=== PATIENT | male | born 1970 | race Caucasian/White ===

== ENCOUNTER → 2020-02-04 10:43 | Outpatient (CLI) | payer OTHER, SELFPAY ==
[2020-01-29 12:27] LABS: Hematocrit 49.9 % (40-54); Hemoglobin 16.5 g/dL (13.0-16.5); Mean Corp Hgb Conc 33.1 g/dL (32-36); Mean Corpuscular Hgb 29.6 pg (27.0-32.0); Mean Corpuscular Volume 89.6 fL (80-94); Mean Platelet Vol. 10.1 fl (6.2-12.0); Platelet Count 275 K/mm3 (150-450); RBC Distribution Width CV 14.5 % (11.6-14.6); RBC Distribution Width SD 45.8 fl (35.1-43.9); Red Blood Count 5.57 M/mm3 (4.6-6.2); White Blood Count 8.5 K/mm3 (4.4-11.0)
--- NOTE | 2020-01-29 12:30 | EKG12_ITS ---
Test Reason : PREOP Blood Pressure : / mmHG Vent. Rate : 069 BPM Atrial Rate : 069 BPM P-R Int : 142 ms QRS Dur : 112 ms QT Int : 414 ms P-R-T Axes : 050 018 028 degrees QTc Int : 443 ms Normal sinus rhythm Normal ECG Confirmed by SAKINA FINCH ([id number]), deputy editor in chief MARCELLUS SIFUENTES ([id number] on 02/03/2020 2:19:53 PM Referred By: George Guidry Confirmed By:SAKINA FINCH
[2020-01-29 12:48] LABS: Anion Gap 6 (5-15); BUN 13 mg/dL (7-18); BUN/Creat Ratio 18.1 RATIO (10-20); Calcium,Total 8.9 mg/dL (8.5-10.1); Chloride 105 mmol/L (98-107); Creatinine, Serum 0.72 mg/dL (0.70-1.30); EST Glomerular Filtration Rate 124 mL/min (>60); Est Glom Filt Rate - Afr Amer 150 mL/min (>60); Glucose 89 mg/dL (74-106); Potassium 4.1 mmol/L (3.5-5.1); Sodium Level 138 mmol/L (136-145)
== END ==
PROVIDERS: Referring Provider Physician Assistant; Visit Provider Physician Assistant
DX: Z01.810 Encounter for preprocedural cardiovascular examination (principal); Z11.59 Encounter for screening for other viral diseases
CPT/HCPCS: 36415; 80048; 85027; 87635; 93005; G2023; U0003

== ENCOUNTER 2020-02-16 11:40 | Day surgery (SDC) | payer OTHER, SELFPAY ==
[2020-02-16] VITALS (8 sets, daily range): BP systolic 143–171; BP diastolic 84–108; PULSE 69–79; RESP 16; TEMP 36–37.5; O2SAT 93–98; BMI 52.1
[2020-02-16] MEDS: Lactated Ringers 1,000 ML 100 ML IV (12:37)
[2020-02-16] MEDS: Epinephrine (1 mg/ml) 1 MG/ML VIAL (13:51)
[2020-02-16] MEDS: Bupiv/Epi 0.5% Mpf 30 ML Vial (13:51)
--- NOTE | 2020-02-16 15:01 | OP.PCM_ITS ---
Report of Operation Date of Procedure: 02/16/20 Pre-Operative Diagnosis: SAIS, AC arthrosis, biceps tendinopathy and RCT left shoulder Post-Operative Diagnosis: same Surgery/Procedure Performed:: ASD, Azalea procedure, biceps tenotomy and RCR assistant director of financial aid: George Guidry Type of Anesthesia:: General/Regional Anesthesiologist: Bam Zhao - Admit VTE Documentation VTE Present on Admission: No VTE Mechan Device Prophylaxis: SCD's VTE Pharm Prophylaxis ordered?: No Reason prophylaxis not ordered:: Treatment Not Indicated
== END 2020-02-16 17:15 | disposition home or self-care (01) ==
LOC: SDC 11:44 → AC 11:49
PROVIDERS: Anesthesiology; Referring Provider Orthopaedic Surgery; Visit Provider Orthopaedic Surgery
PROC: (CPT 29827; principal; 2020-02-16 13:00)
DX: M75.42 Impingement syndrome of left shoulder (principal); M75.102 Unspecified rotator cuff tear or rupture of left shoulder, not specified as traumatic; M19.012 Primary osteoarthritis, left shoulder; Z11.59 Encounter for screening for other viral diseases; Z91.81 History of falling; Z85.6 Personal history of leukemia; F17.210 Nicotine dependence, cigarettes, uncomplicated; E78.00 Pure hypercholesterolemia, unspecified; Z79.899 Other long term (current) drug therapy; G25.81 Restless legs syndrome
CPT/HCPCS: 01630; 29824; 29826; 29827; 29828; 64415; 87635; G2023; J7120; J2405; U0003

== ENCOUNTER 2020-07-19 05:49 | Day surgery (SDC) | payer OTHER, SELFPAY ==
[2020-02-16 12:07] VITALS: BMI 52.1
[2020-07-15 13:13] LABS: Absolute Lymphocyte Count 1.97 X10^3/uL (0.83-4.51); Absolute Neutrophil Count 5.9 X10^3/uL (2.0-7.7); Basophil# 0.05 X10^3/uL; Basophil% 0.6 % (0-1); Eosinophil# 0.12 X10^3/uL; Eosinophils% 1.4 % (0-5); Lymphocyte # 1.97 X10^3/ul (4.0); Lymphocyte % 22.4 % (19-41); Mean Corp Hgb Conc 33.3 g/dL (32-36); Mean Corpuscular Hgb 29.1 pg (27.0-32.0); Mean Corpuscular Volume 87.3 fL (80-94); Mean Platelet Vol. 10.2 fl (6.2-12.0); Monocyte# 0.76 X10^3/uL; Monocyte% 8.7 % (0-10); NRBC Flagged by Analyzer 0 % (0-5); Neutrophil # 5.85 X10^3/uL (2.7-7.7); Neutrophil % 66.6 % (47-70); Platelet Count 282 K/mm3 (150-450); RBC Distribution Width CV 13.4 % (11.6-14.6); RBC Distribution Width SD 42.3 fl (35.1-43.9); Red Blood Count 5.84 M/mm3 (4.6-6.2); White Blood Count 8.8 K/mm3 (4.4-11.0)
[2020-07-15 13:41] LABS: Anion Gap 5 (5-15); BUN 15 mg/dL (7-18); BUN/Creat Ratio 17.3 RATIO (10-20); Calcium,Total 8.8 mg/dL (8.5-10.1); Chloride 106 mmol/L (98-107); Creatinine, Serum 0.86 mg/dL (0.70-1.30); EST Glomerular Filtration Rate 100 mL/min (>60); Est Glom Filt Rate - Afr Amer 121 mL/min (>60); Glucose 97 mg/dL (74-106); Potassium 4.2 mmol/L (3.5-5.1); Sodium Level 137 mmol/L (136-145)
[2020-07-19] VITALS (8 sets, daily range): BP systolic 117–169; BP diastolic 48–91; PULSE 66–85; RESP 16–18; TEMP 36.1–36.9; O2SAT 94–97; BMI 53.4
[2020-07-19] MEDS: Lactated Ringers 1,000 ML 100 ML IV (06:33)
[2020-07-19] MEDS: Bupiv/Epi 0.5% Mpf 30 ML Vial (08:26)
[2020-07-19] MEDS: Epinephrine (1 mg/ml) 1 MG/ML VIAL (08:26)
--- NOTE | 2020-07-19 09:29 | PCM.OPRPT ---
Report of Operation Date of Procedure: 07/19/20 Pre-Operative Diagnosis: Recurrent left RCT Post-Operative Diagnosis: same Surgery/Procedure Performed:: Arthroscopically assisted revision left RCR billet checker: Ignacia Galvin NP Type of Anesthesia:: General Anesthesiologist: Trever Johnson - Admit VTE Documentation VTE Present on Admission: No VTE Mechan Device Prophylaxis: SCD's VTE Pharm Prophylaxis ordered?: No Reason prophylaxis not ordered:: Treatment Not Indicated
[2020-07-19] MEDS: HYDROcodone Bitartrate/Apap 5/325 Tablet PO (11:27)
== END 2020-07-19 12:29 | disposition home or self-care (01) ==
LOC: SDC 05:49 → AC 05:50
PROVIDERS: Referring Provider Orthopaedic Surgery; Visit Provider Orthopaedic Surgery
PROC: (CPT 29827; principal; 2020-07-19 07:10)
DX: M75.101 Unspecified rotator cuff tear or rupture of right shoulder, not specified as traumatic (principal); Z20.828 Contact with and (suspected) exposure to other viral communicable diseases; Z79.899 Other long term (current) drug therapy; C95.91 Leukemia, unspecified, in remission; E78.00 Pure hypercholesterolemia, unspecified; F17.200 Nicotine dependence, unspecified, uncomplicated; G25.81 Restless legs syndrome; E66.01 Morbid (severe) obesity due to excess calories; Z68.43 Body mass index [BMI] 50.0-59.9, adult
CPT/HCPCS: 01630; 29827; 64415; 36415; 80048; 85025; 87426; C9803; J7120; J2405